=== PATIENT | male | born 1990 | race Two or more races ===

== ENCOUNTER 2022-02-11 19:28 | Inpatient (IN) | payer MEDICAID ==
[~2022-02-11] VITALS: Ht 167.6 cm; Wt 128.3 kg
[2022-02-11] MEDS ORDERED: FUROSEMIDE 40 MG/4 ML VIAL IV ONE (21:00)
[2022-02-11 22:36] LABS: Basophils # (auto) 0.1 10 ^3/uL (0-0.2); Basophils % (auto) 0.8 % (0.0-2.0); Eosinophils # (auto) 0.5 10 ^3/uL (0-0.8); Eosinophils % (auto) 6.7 % (0.0-7.0); Hematocrit 48.4 % (41.0-53.0); Hemoglobin 15.8 g/dL (13.5-17.5); Lymphocytes # (auto) 1.6 10 ^3/uL (0.4-5.4); Lymphocytes % (auto) 19.8 % (10.0-50.0); Mean Corpuscular Hemoglobin 29.5 pg (28.0-32.0); Mean Corpuscular Hgb Conc. 32.6 g/dL (32.0-36.0); Mean Corpuscular Volume 90.3 fL (80.0-100.0); Monocytes # (auto) 0.6 10 ^3/uL (0-1.3); Monocytes % (auto) 7.9 % (0.0-12.0); Neutrophils # (auto) 5.1 10 ^3/uL (1.6-8.6); Neutrophils % (auto) 64.8 % (37.0-80.0); Nucleated Red Blood Cells % 0.1 %; Red Blood Cells 5.36 10^6/uL (4.5-5.90); White Blood Cell 7.9 10^3/uL (4.4-10.8)
[2022-02-11 23:00] LABS: Albumin 2.8 g/dL (3.4-5.0); BUN/Creatinine Ratio 19.4; Calcium 7.7 mg/dL (8.5-10.1); Magnesium 1.9 mg/dL (1.6-2.6); Potassium 4.2 mmol/L (3.5-5.1)
[2022-02-11 23:03] LABS: Bilirubin, Total 0.7 mg/dL (0.2-1.0); Total Protein 5.9 g/dL (6.4-8.2)
[2022-02-11] MEDS ORDERED: ASPirin 325 MG TAB PO ONE (23:15)
[2022-02-12] MEDS ORDERED: IOHEXOL 350 MG/ML 100ML IJ ONE (02:50)
[2022-02-12] MEDS ORDERED: TEMAZEPAM 15 MG CAP PO PRN (04:30)
[2022-02-12] MEDS ORDERED: DEXTROSE (50%) 50ML SYRG IV PRN (04:30)
[2022-02-12] MEDS ORDERED: ONDANSETRON HCL 4 MG/2 ML VIAL IV PRN (04:30)
[2022-02-12] MEDS ORDERED: MORPHINE SULFATE INJ 2 MG/ml SYRG IV PRN (04:30)
[2022-02-12] MEDS ORDERED: ENOXAPARIN SOD 100 MG/1 ML SYRINGE SC ONE (04:30)
[2022-02-12] MEDS ORDERED: NITROGLYCERIN 0.4 MG SL TAB SL PRN (04:30)
[2022-02-12 05:10] LABS: Cholesterol 141 mg/dL (< 200)
[2022-02-12 05:12] LABS: HDL Cholesterol 34 mg/dL (40-59); LDL Cholesterol 96 mg/dL (< 100); Triglycerides 90 mg/dL (< 150)
[2022-02-12] MEDS ORDERED: ALBUTEROL SULF 2.5 MG/0.5ML(0.5%) NEB SOLN NEB PRN (06:45)
[2022-02-12 06:58] VITALS: BP 127/96
[2022-02-12] MEDS: InsuLIN REG 1unit/0.01ml Soln (100units/ml) SC SCH ×4 (07:00→22:00)
[2022-02-12] MEDS ORDERED: FUROSEMIDE 20 MG/2 ML VIAL IV ONE (07:15)
[2022-02-12] MEDS: ACCU-CHEK COMFORT CURVE STRIP VI SCH ×4 (07:25→22:08)
[2022-02-12] MEDS ORDERED: ENALAPRIL MALEATE 10 MG TAB PO SCH (10:00)
[2022-02-12] MEDS ORDERED: FUROSEMIDE 40 MG TAB PO SCH (10:00)
[2022-02-12] MEDS: AZITHROMYCIN 500MG/ 250ML 250 ML IV SCH (10:20)
[2022-02-12] MEDS: ASPirin 81 mg TAB PO SCH (10:21)
[2022-02-12] MEDS: ENOXAPARIN SOD 40 MG/0.4 ML SYRINGE SC SCH ×2 (10:21→10:31)
[2022-02-12] MEDS: PANTOPRAZOLE 40 MG TAB PO SCH (10:21)
[2022-02-12] MEDS: CARVEDILOL 3.125 MG TAB PO SCH ×2 (10:22→22:07)
[2022-02-12 10:42] LABS: Urine WBC None Seen /hpf (0 - 3)
[2022-02-12 10:53] LABS: Urine Bacteria NONE SEEN /hpf (None Seen); Urine Blood Negative /uL (Negative); Urine Specific Gravity 1.008 (1.001-1.035)
[2022-02-12 11:05] LABS: Alcohol, Urine < 3.0 mg/dL (0-10); Amphetamine Screen, Urine NEGATIVE (NEGATIVE); Barbiturate Scree,Urine NEGATIVE (NEGATIVE); Benzodiazephine Screen, Urine NEGATIVE (NEGATIVE); Cannabinoid Screen, Urine NEGATIVE (NEGATIVE); Cocaine Screen, Urine NEGATIVE (NEGATIVE); Opiate Scree,Urine NEGATIVE (NEGATIVE); Phencyclidine Screen, Urine NEGATIVE (NEGATIVE)
[2022-02-12 22:00] VITALS: BP 124/70
[2022-02-12] MEDS: FUROSEMIDE 20 MG/2 ML VIAL IV SCH (22:08)
[2022-02-12] MEDS: ATORVASTATIN 20 MG TAB PO SCH (22:08)
[2022-02-13 05:00] VITALS: BP 112/82
[2022-02-13 05:52] LABS: Basophils # (auto) 0.1 10 ^3/uL (0-0.2); Eosinophils # (auto) 0.7 10 ^3/uL (0-0.8); Eosinophils % (auto) 12.5 % (0.0-7.0); Hematocrit 45.3 % (41.0-53.0); Hemoglobin 14.7 g/dL (13.5-17.5); Lymphocytes # (auto) 1.7 10 ^3/uL (0.4-5.4); Lymphocytes % (auto) 28.5 % (10.0-50.0); Mean Corpuscular Hemoglobin 29.1 pg (28.0-32.0); Mean Corpuscular Hgb Conc. 32.3 g/dL (32.0-36.0); Mean Corpuscular Volume 89.9 fL (80.0-100.0); Monocytes # (auto) 0.6 10 ^3/uL (0-1.3); Monocytes % (auto) 9.4 % (0.0-12.0); Neutrophils # (auto) 2.9 10 ^3/uL (1.6-8.6); Neutrophils % (auto) 48.6 % (37.0-80.0); Nucleated Red Blood Cells % 0.1 %; Red Blood Cells 5.04 10^6/uL (4.5-5.90); Red Cell Distribution Width 15.1 % (11.8-14.3)
[2022-02-13 06:09] LABS: Albumin 2.5 g/dL (3.4-5.0); Calcium 7.5 mg/dL (8.5-10.1); Potassium 4.2 mmol/L (3.5-5.1)
[2022-02-13 06:11] LABS: BUN/Creatinine Ratio 19.8
[2022-02-13 06:13] LABS: Bilirubin, Total 0.8 mg/dL (0.2-1.0); Total Protein 5.1 g/dL (6.4-8.2)
[2022-02-13] MEDS: ACCU-CHEK COMFORT CURVE STRIP VI SCH ×4 (06:32→21:11)
[2022-02-13] MEDS: FUROSEMIDE 20 MG/2 ML VIAL IV SCH ×2 (06:32→18:00)
[2022-02-13] MEDS: InsuLIN REG 1unit/0.01ml Soln (100units/ml) SC SCH ×4 (06:33→21:11)
[2022-02-13 09:00] VITALS: BP 121/79
[2022-02-13] MEDS: PANTOPRAZOLE 40 MG TAB PO SCH (09:14)
[2022-02-13] MEDS: ASPirin 81 mg TAB PO SCH (09:14)
[2022-02-13] MEDS: CARVEDILOL 3.125 MG TAB PO SCH ×2 (09:15→21:11)
[2022-02-13] MEDS: SPIRONOLACTONE 25 MG TAB PO SCH (09:16)
[2022-02-13] MEDS: DAPAGLIFLOZIN 5 MG TAB PO SCH (09:16)
[2022-02-13] MEDS: ENALAPRIL MALEATE 10 MG TAB PO SCH (09:16)
[2022-02-13] MEDS: AZITHROMYCIN 500MG/ 250ML 250 ML IV SCH (09:17)
[2022-02-13] MEDS: ENOXAPARIN SOD 40 MG/0.4 ML SYRINGE SC SCH (09:17)
[2022-02-13] MEDS: MILRINONE 20MG/100ML 100 ML IV SCH ×3 (11:37→21:10)
[2022-02-13 13:00] VITALS: BP 92/54
[2022-02-13 17:00] VITALS: BP 100/58
[2022-02-13] MEDS: ATORVASTATIN 20 MG TAB PO SCH (21:11)
[2022-02-13 22:00] VITALS: BP 103/65
[2022-02-14] MEDS: MILRINONE 20MG/100ML 100 ML IV SCH ×3 (04:31→18:03)
[2022-02-14 05:18] VITALS: BP 103/65
[2022-02-14] MEDS: ACCU-CHEK COMFORT CURVE STRIP VI SCH ×4 (06:03→21:49)
[2022-02-14] MEDS: InsuLIN REG 1unit/0.01ml Soln (100units/ml) SC SCH ×4 (06:03→21:42)
[2022-02-14] MEDS: FUROSEMIDE 20 MG/2 ML VIAL IV SCH ×2 (06:03→18:00)
[2022-02-14 06:13] LABS: Basophils # (auto) 0.1 10 ^3/uL (0-0.2); Basophils % (auto) 0.9 % (0.0-2.0); Eosinophils # (auto) 0.8 10 ^3/uL (0-0.8); Eosinophils % (auto) 9.5 % (0.0-7.0); Hematocrit 44.7 % (41.0-53.0); Hemoglobin 14.5 g/dL (13.5-17.5); Lymphocytes # (auto) 1.5 10 ^3/uL (0.4-5.4); Lymphocytes % (auto) 18.6 % (10.0-50.0); Mean Corpuscular Hemoglobin 29.1 pg (28.0-32.0); Mean Corpuscular Hgb Conc. 32.5 g/dL (32.0-36.0); Mean Corpuscular Volume 89.7 fL (80.0-100.0); Monocytes # (auto) 0.6 10 ^3/uL (0-1.3); Neutrophils # (auto) 5.1 10 ^3/uL (1.6-8.6); Nucleated Red Blood Cells % 0.1 %; Red Blood Cells 4.98 10^6/uL (4.5-5.90); Red Cell Distribution Width 14.5 % (11.8-14.3); White Blood Cell 8.1 10^3/uL (4.4-10.8)
[2022-02-14 06:32] LABS: Calcium 7.7 mg/dL (8.5-10.1); Potassium 3.4 mmol/L (3.5-5.1)
[2022-02-14 06:35] LABS: BUN/Creatinine Ratio 23.1
[2022-02-14 09:00] VITALS: BP 123/82
[2022-02-14] MEDS: CARVEDILOL 3.125 MG TAB PO SCH ×2 (09:48→21:48)
[2022-02-14] MEDS: ASPirin 81 mg TAB PO SCH (09:48)
[2022-02-14] MEDS: SPIRONOLACTONE 25 MG TAB PO SCH (09:48)
[2022-02-14] MEDS: AZITHROMYCIN 500MG/ 250ML 250 ML IV SCH (09:48)
[2022-02-14] MEDS: DAPAGLIFLOZIN 5 MG TAB PO SCH (09:49)
[2022-02-14] MEDS: ENALAPRIL MALEATE 10 MG TAB PO SCH (09:49)
[2022-02-14] MEDS: ENOXAPARIN SOD 40 MG/0.4 ML SYRINGE SC SCH (09:49)
[2022-02-14] MEDS: PANTOPRAZOLE 40 MG TAB PO SCH (09:49)
[2022-02-14 12:59] VITALS: BP 101/55
[2022-02-14 17:00] VITALS: BP 100/67
[2022-02-14] MEDS: ATORVASTATIN 20 MG TAB PO SCH (21:49)
[2022-02-14 22:00] VITALS: BP 139/57
[2022-02-15] VITALS (7 sets, daily range): BP systolic 98–139; BP diastolic 57–79
[2022-02-15] MEDS: MILRINONE 20MG/100ML 100 ML IV SCH ×3 (00:23→15:22)
[2022-02-15] MEDS: InsuLIN REG 1unit/0.01ml Soln (100units/ml) SC SCH ×4 (06:08→22:11)
[2022-02-15] MEDS: FUROSEMIDE 20 MG/2 ML VIAL IV SCH ×2 (06:08→18:11)
[2022-02-15] MEDS: ACCU-CHEK COMFORT CURVE STRIP VI SCH ×4 (06:09→22:06)
[2022-02-15] MEDS: AZITHROMYCIN 500MG/ 250ML 250 ML IV SCH (09:38)
[2022-02-15] MEDS: ASPirin 81 mg TAB PO SCH (09:39)
[2022-02-15] MEDS: ENALAPRIL MALEATE 10 MG TAB PO SCH (09:40)
[2022-02-15] MEDS: ENOXAPARIN SOD 40 MG/0.4 ML SYRINGE SC SCH (09:40)
[2022-02-15] MEDS: CARVEDILOL 3.125 MG TAB PO SCH ×2 (09:41→22:06)
[2022-02-15] MEDS: SPIRONOLACTONE 25 MG TAB PO SCH (09:41)
[2022-02-15] MEDS: DAPAGLIFLOZIN 5 MG TAB PO SCH (09:41)
[2022-02-15] MEDS: PANTOPRAZOLE 40 MG TAB PO SCH (09:41)
[2022-02-15] MEDS: ATORVASTATIN 20 MG TAB PO SCH (22:06)
[2022-02-16] MEDS: MILRINONE 20MG/100ML 100 ML IV SCH ×3 (01:02→11:03)
[2022-02-16 05:00] VITALS: BP 107/56
[2022-02-16] MEDS: InsuLIN REG 1unit/0.01ml Soln (100units/ml) SC SCH ×2 (05:37→11:30)
[2022-02-16] MEDS: ACCU-CHEK COMFORT CURVE STRIP VI SCH ×2 (05:37→14:53)
[2022-02-16] MEDS: FUROSEMIDE 20 MG/2 ML VIAL IV SCH (06:46)
[2022-02-16 09:00] VITALS: BP 117/71
[2022-02-16] MEDS: ENOXAPARIN SOD 40 MG/0.4 ML SYRINGE SC SCH (09:48)
[2022-02-16] MEDS: AZITHROMYCIN 500MG/ 250ML 250 ML IV SCH (09:48)
[2022-02-16] MEDS: ENALAPRIL MALEATE 10 MG TAB PO SCH (09:48)
[2022-02-16] MEDS: SPIRONOLACTONE 25 MG TAB PO SCH (09:49)
[2022-02-16] MEDS: DAPAGLIFLOZIN 5 MG TAB PO SCH (09:49)
[2022-02-16] MEDS: PANTOPRAZOLE 40 MG TAB PO SCH (09:49)
[2022-02-16] MEDS: ASPirin 81 mg TAB PO SCH (09:49)
[2022-02-16] MEDS: CARVEDILOL 3.125 MG TAB PO SCH (09:50)
[2022-02-16] MEDS ORDERED: FURO1TAB33 PO (10:09)
[2022-02-16] MEDS ORDERED: ATOR20TA50 PO (10:09)
[2022-02-16] MEDS ORDERED: CAR3125T PO (10:09)
[2022-02-16] MEDS ORDERED: ASPI-325 PO (10:09)
[2022-02-16] MEDS ORDERED: SPIR25TA PO (10:09)
[2022-02-16] MEDS ORDERED: ENAL10TA13 PO (10:09)
[2022-02-16] MEDS ORDERED: DAPA1TAB4 PO (10:10)
[2022-02-16] MEDS ORDERED: METF-370 PO (10:10)
[2022-02-16 12:46] VITALS: BP 105/59
== END 2022-02-16 15:48 | disposition home or self-care (01) | DRG 194 ==
LOC: ER 19:28 → TELE 02-12 04:26 → TELE-CENTR 02-12 18:49
PROVIDERS: ADMIT Nurse Practitioner; ATTEND Internal Medicine Pulmonary Disease
DX: I11.0 Hypertensive heart disease with heart failure (principal); I21.A1 Myocardial infarction type 2; J18.9 Pneumonia, unspecified organism; N17.9 Acute kidney failure, unspecified; E11.21 Type 2 diabetes mellitus with diabetic nephropathy; I50.23 Acute on chronic systolic (congestive) heart failure; Z68.42 Body mass index [BMI] 45.0-49.9, adult; E66.01 Morbid (severe) obesity due to excess calories; Z20.822 Contact with and (suspected) exposure to COVID-19; E11.40 Type 2 diabetes mellitus with diabetic neuropathy, unspecified; Z79.84 Long term (current) use of oral hypoglycemic drugs; Z82.49 Family history of ischemic heart disease and other diseases of the circulatory system
CPT/HCPCS: 36415; 36600; 71045; 71275; 76700; 80048; 80053; 80061; 80307; 81001; 82805; 82962; 83036; 83735; 83880; 84443; 84484; 85025; 85379; 87426; 93005; 93306; 96365; 96372; 96375; 96376; 99291; G0378; J1815

== ENCOUNTER 2023-12-01 20:45 | Inpatient (IN) | payer MEDICAID ==
[~2023-12-01] VITALS: Ht 170.2 cm; Wt 110.7 kg
[~2023-12-01 20:45] MED LIST: ASPI-325 PO; ATOR20TA50 PO; CARV-214 PO; DAPA1TAB4 PO; ENAL1TAB47 PO; FURO1TAB33 PO; METF-370 PO; SPIR25TA PO
[2023-12-01 21:35] LABS: Basophils # (auto) 0.1 10 ^3/uL (0-0.2); Basophils % (auto) 0.5 % (0.0-2.0); Eosinophils # (auto) 0.1 10 ^3/uL (0-0.8); Eosinophils % (auto) 0.4 % (0.0-7.0); Lymphocytes # (auto) 1.7 10 ^3/uL (0.4-5.4); Lymphocytes % (auto) 12.5 % (10.0-50.0); Mean Corpuscular Hgb Conc. 33.4 g/dL (32.0-36.0); Mean Corpuscular Volume 89.8 fL (80.0-100.0); Monocytes # (auto) 1.1 10 ^3/uL (0-1.3); Monocytes % (auto) 7.9 % (0.0-12.0); Neutrophils # (auto) 10.9 10 ^3/uL (1.6-8.6); Neutrophils % (auto) 78.7 % (37.0-80.0); Red Blood Cells 5.01 10^6/uL (4.5-5.90); Red Cell Distribution Width 15.4 % (11.8-14.3); White Blood Cell 13.8 10^3/uL (4.4-10.8)
[2023-12-01 21:49] LABS: Alanine Aminotransferase 77 U/L (7-40); Alkaline Phosphatase 99 U/L (46-116); Anion Gap 5 (5-15); Aspartate Aminotransferase 24 U/L (13-40); Blood Urea Nitrogen 8 mg/dL (9-23); Calcium 8.6 mg/dL (8.5-10.1); Carbon Dioxide 25 mmol/L (20-30); Chloride 107 mmol/L (98-107); Glucose 100 mg/dL (74-106); Potassium 3.6 mmol/L (3.5-5.1); Sodium 137 mmol/L (136-145)
[2023-12-01 21:50] LABS: Albumin 3.4 g/dL (3.2-4.8); Bilirubin, Total 1.6 mg/dL (0.2-1.0); Total Protein 5.7 g/dL (5.7-8.2)
[2023-12-02] VITALS (13 sets, daily range): BP systolic 117–145; BP diastolic 81–96; PULSE 76–101; RESP 16–20; TEMP 98.1–98.9; O2SAT 94–100
[2023-12-02] MEDS: NITROGLYCERIN 2% OINT 1GM PKG TD ONE (00:45)
[2023-12-02] MEDS: cefTRIAXone 1GM/50ML D5W 50 ML IV ONE ×2 (00:45→15:31)
[2023-12-02] MEDS: FUROSEMIDE 40 MG/4 ML VIAL IV ONE (01:42)
[2023-12-02] MEDS: AZITHROMYCIN 500MG/ 250ML 250 ML IV ONE (01:43)
[2023-12-02] MEDS: ASPirin 325 MG TAB PO ONE (01:43)
[2023-12-02] MEDS ORDERED: MORPHINE SULFATE INJ 2 MG/ml SYRG IV PRN (06:00)
[2023-12-02] MEDS ORDERED: NITROGLYCERIN 0.4 MG SL TAB SL PRN (06:00)
[2023-12-02] MEDS ORDERED: ALBUTEROL SULF 2.5 MG/0.5ML(0.5%) NEB SOLN NEB PRN (06:00)
[2023-12-02] MEDS ORDERED: DEXTROSE (50%) 50ML SYRG IV PRN (06:00)
[2023-12-02] MEDS ORDERED: ONDANSETRON HCL 4 MG/2 ML VIAL IV PRN (06:00)
[2023-12-02] MEDS: FUROSEMIDE 20 MG/2 ML VIAL IV SCH (06:23)
[2023-12-02] MEDS: ACCU-CHEK COMFORT CURVE STRIP VI SCH (06:53)
[2023-12-02] MEDS: InsuLIN REG 1unit/0.01ml Soln (100units/ml) SC SCH (06:54)
[2023-12-02] MEDS ORDERED: GLIP5TAB21 PO (08:34)
[2023-12-02] MEDS: ASPirin 81 mg TAB PO SCH (09:23)
[2023-12-02] MEDS: CARVEDILOL 3.125 MG TAB PO SCH (09:24)
[2023-12-02] MEDS: ENALAPRIL MALEATE 10 MG TAB PO SCH (09:25)
[2023-12-02] MEDS: ATORVASTATIN 20 MG TAB PO SCH (22:10)
[2023-12-03] VITALS (15 sets, daily range): BP systolic 123–142; BP diastolic 86–102; PULSE 77–102; RESP 15–20; TEMP 97.8–99.1; O2SAT 91–100
[2023-12-03] MEDS ORDERED: AZITHROMYCIN 500MG/ 250ML 250 ML IV SCH (02:00)
[2023-12-03 06:45] LABS: Basophils # (auto) 0 10 ^3/uL (0-0.2); Basophils % (auto) 0.3 % (0.0-2.0); Eosinophils # (auto) 0.5 10 ^3/uL (0-0.8); Eosinophils % (auto) 4.3 % (0.0-7.0); Hematocrit 43.7 % (41.0-53.0); Hemoglobin 14.7 g/dL (13.5-17.5); Lymphocytes # (auto) 1.6 10 ^3/uL (0.4-5.4); Lymphocytes % (auto) 13.8 % (10.0-50.0); Mean Corpuscular Hemoglobin 30.4 pg (28.0-32.0); Mean Corpuscular Hgb Conc. 33.6 g/dL (32.0-36.0); Mean Corpuscular Volume 90.5 fL (80.0-100.0); Monocytes # (auto) 1.1 10 ^3/uL (0-1.3); Monocytes % (auto) 9.5 % (0.0-12.0); Neutrophils # (auto) 8.1 10 ^3/uL (1.6-8.6); Neutrophils % (auto) 72.1 % (37.0-80.0); Nucleated Red Blood Cells % 0.1 %; Red Blood Cells 4.83 10^6/uL (4.5-5.90); Red Cell Distribution Width 15.3 % (11.8-14.3); White Blood Cell 11.3 10^3/uL (4.4-10.8)
[2023-12-03 06:52] LABS: Anion Gap 5 (5-15); Carbon Dioxide 28 mmol/L (20-30); Chloride 104 mmol/L (98-107); Potassium 3.6 mmol/L (3.5-5.1); Sodium 137 mmol/L (136-145)
[2023-12-03 06:53] LABS: Calcium 8.4 mg/dL (8.5-10.1)
[2023-12-03 06:58] LABS: BUN/Creatinine Ratio 17.6 (10.0-20.0); Blood Urea Nitrogen 13 mg/dL (9-23); Glucose 96 mg/dL (74-106)
[2023-12-03 07:01] LABS: INR 1.15 (0.9-1.15); Partial Thromboplastin Time 29.9 SEC (24.5-34.5); Prothrombin Time 12.1 sec (9.3-11.8)
[2023-12-03] MEDS ORDERED: LIDOCAINE 2%HCL (LOCAL ANESTH.) INJ 20ML MDV ONE (07:47)
[2023-12-03] MEDS ORDERED: IODIXANOL 320MG/ML 100ML BTL IV ONE (08:04)
[2023-12-03] MEDS ORDERED: HEPARIN SODIUM (PORCINE) 5000 UNITS/ML 1ML VIAL ONE (08:08)
[2023-12-03] MEDS ORDERED: VERAPAMIL 2.5MG/ML INJ 2ML VIAL IV ONE (08:08)
[2023-12-03] MEDS ORDERED: MIDAZOLAM HCL 2MG/2ML 2ml VIAL (1mg/ml) ONE (08:09)
[2023-12-03] MEDS ORDERED: fentaNYL CITRATE 100 MCG/2 ML VL ONE (08:09)
[2023-12-03] MEDS: cefTRIAXone 1GM/50ML D5W 50 ML IV SCH (09:00)
[2023-12-03] MEDS ORDERED: FURO20TA3 PO (10:21)
[2023-12-03] MEDS ORDERED: METF-929 PO (10:21)
[2023-12-03] MEDS ORDERED: ENAL1TAB48 PO (10:21)
[2023-12-03] MEDS ORDERED: ATOR20TA50 PO (10:23)
[2023-12-04] VITALS (11 sets, daily range): BP systolic 113–134; BP diastolic 83–101; PULSE 72–101; RESP 17–20; TEMP 98.1–98.5; O2SAT 94–99
[2023-12-04] MEDS: EMPAGLIFLOZIN 10 MG TAB PO SCH (09:17)
[2023-12-04] MEDS: SPIRONOLACTONE 25 MG TAB PO SCH (09:17)
[2023-12-04 21:32] LABS: COVID19 ANTIGEN SOFIA FIA NEGATIVE (NEGATIVE)
[2023-12-05] VITALS (8 sets, daily range): BP systolic 120–132; BP diastolic 81–94; PULSE 74–95; RESP 16–21; TEMP 36.8; O2SAT 92–97
[2023-12-05] MEDS ORDERED: ASPI-628 PO (12:49)
[2023-12-05] MEDS ORDERED: ATOR20TA PO (12:51)
[2023-12-05] MEDS ORDERED: EMPA1TAB PO (12:51)
[2023-12-05] MEDS ORDERED: CARV-214 PO (12:51)
[2023-12-05] MEDS ORDERED: ENAL1TAB46 PO (12:51)
[2023-12-05] MEDS ORDERED: DOXY1CAP57 PO (12:52)
[2023-12-05] MEDS ORDERED: SPIR25TA8 PO (12:52)
== END 2023-12-05 16:29 | disposition home or self-care (01) | DRG 720 ==
LOC: ER 20:45 → TELE 12-02 06:03 → TELE-WESTW 12-02 08:31
PROVIDERS: ADMIT Nurse Practitioner; ATTEND Nurse Practitioner
PROC: 4A023N7 Measurement of Cardiac Sampling and Pressure, Left Heart, Percutaneous Approach (ICD-10-PCS; principal; 2023-12-03)
PROC: B211YZZ Fluoroscopy of Multiple Coronary Arteries using Other Contrast (ICD-10-PCS; 2023-12-03)
PROC: B215YZZ Fluoroscopy of Left Heart using Other Contrast (ICD-10-PCS; 2023-12-03)
DX: A41.9 Sepsis, unspecified organism (principal); J96.01 Acute respiratory failure with hypoxia; I21.4 Non-ST elevation (NSTEMI) myocardial infarction; I50.43 Acute on chronic combined systolic (congestive) and diastolic (congestive) heart failure; J15.69 Pneumonia due to other Gram-negative bacteria; I42.0 Dilated cardiomyopathy; J15.9 Unspecified bacterial pneumonia; I11.0 Hypertensive heart disease with heart failure; E11.9 Type 2 diabetes mellitus without complications; I07.1 Rheumatic tricuspid insufficiency; E78.00 Pure hypercholesterolemia, unspecified; I25.5 Ischemic cardiomyopathy; Z20.822 Contact with and (suspected) exposure to COVID-19; Z82.49 Family history of ischemic heart disease and other diseases of the circulatory system; Z63.4 Disappearance and death of family member; Z91.128 Patient's intentional underdosing of medication regimen for other reason
CPT/HCPCS: 36415; 71045; 80048; 80053; 82962; 83605; 83735; 83880; 84484; 85025; 85610; 85730; 86850; 86900; 86901; 87040; 87426; 93306; 93458; 96365; 96366; 96367; 96375; 99152; G0378; J1815; J2250; Q9967